=== PATIENT | male | born 1995 | race Two or more races ===

== ENCOUNTER 2024-12-27 15:52 | Emergency (ER) | payer MEDICAID, SELFPAY ==
[2024-12-27 16:21] VITALS: BP 116/79; PULSE 67; RESP 18; TEMP 36.8; O2SAT 100
[2024-12-27 16:23] VITALS: BMI 34.4
--- NOTE | 2024-12-27 16:34 | PD.EDANX ---
ED Anxiety RME/HPI General Stated Complaint: anxiety, feels dehydrated Time Seen by Provider: 12/27/24 16:31 Arrival date/time: 12/27/24 15:52 29-year-old male with history of anxiety presents emergency department today with complaints of anxiety patient reports that he is going through a break-up and he drank heavily last night patient reports nausea and vomiting and anxiety. Patient ports no chest pain or shortness of breath Limitations: no limitations Related Data Previous Rx's ?Medication ?Instructions ?Recorded acetaminophen 500 mg capsule 1,000 mg (2 x 500 mg) PO Q8HR PRN 12/27/24 pain #30 caps hydroxyzine HCl 50 mg tablet 50 mg PO TID PRN anxiety #30 tabs 12/27/24 ondansetron 4 mg disintegrating 4 mg PO Q8H PRN nausea and 12/27/24 tablet vomiting #10 tabs Allergies Allergy/AdvReac Type Severity Reaction Status Date / Time No Known Allergies Allergy Verified 12/27/24 15:55 Review of Systems Review of Systems Systems Reviewed: All systems reviewed, normal except as documented Constitutional Constitutional: Reports system reviewed and no additional complaints, except as documented, Denies fever(s) and Denies headache(s) Eyes Eyes: Reports system reviewed and no additional complaints, except as documented and Denies blurry vision ENT Ears, Nose, Mouth, and Throat: Reports system reviewed and no additional complaints, except as documented, Denies headache(s), Denies nasal congestion and Denies nasal discharge Cardiovascular Cardiovascular: Reports system reviewed and no additional complaints, except as documented, Denies chest pain and Denies dyspnea Respiratory Respiratory: Reports system reviewed and no additional complaints, except as documented, Denies chest congestion, Denies cough and Denies dyspnea Gastrointestinal Gastrointestinal: Reports system reviewed and no additional complaints, except as documented and Denies abdominal pain Integumentary/Breasts Skin/Breast: Reports system reviewed and no additional complaints, except as documented and Denies rash Neurologic Neurologic: Reports system reviewed and no additional complaints, except as documented, Reports as per HPI and Denies headache(s) Psychiatric Psychiatric: Reports system reviewed and no additional complaints, except as documented, Reports anxiety, Reports homicidal ideation and Reports suicidal ideation Past Medical History Past Medical History CARDIAC: Negative Congestive Heart Failure RESPIRATORY: Negative Chronic Obstructive Pulmonary Disease (COPD) GENITOURINARY: Negative Renal Disease ENDOCRINE: Negative Diabetes Mellitus Type 1 or Diabetes Mellitus Type 2 Family History FAMILY HISTORY: Negative Family Cardiac Disorders Social History SMOKING STATUS: Current every day smoker SUBSTANCE USE: crack/cocaine ED Exam General Limitations: Present no limitations General appearance: Present alert and in no apparent distress Head Head exam: Present atraumatic Eye Eye exam: Present normal appearance, PERRL and EOMI ENT ENT exam: Present normal exam, normal oropharynx and mucous membranes moist Neck Neck exam: Present normal inspection, full ROM and trachea midline Chest Chest inspection: Present normal inspection and symmetric chest wall rise Respiratory Respiratory exam: Present normal lung sounds bilaterally Cardiovascular Cardiovascular exam: Present regular rate, normal rhythm and normal heart sounds Abdominal Exam Abdominal exam: Present soft and normal bowel sounds Extremities Exam Extremities exam: Present normal inspection and full ROM Back Exam Back exam: Present normal inspection and full ROM Neurological Exam Neurological exam: Present alert, oriented X3 and CN II-XII intact Psychiatric Psychiatric exam: Present normal affect and normal mood Skin Skin exam: Present warm, dry, intact and normal color Course Quality Measures none Orders Category Date Time Status Acetaminophen Tab [Tylenol ES Tab] Med 12/27/24 16:31 Discontinued 1,000 mg PO X1 ONE LORazepam [Ativan] Med 12/27/24 16:31 Discontinued 0.5 mg PO X1 ONE Ondansetron Odt [Zofran Odt] Med 12/27/24 16:31 Discontinued 4 mg PO X1 ONE Vital Signs Vital signs: Vital Signs Temperature 98.3 F 12/27/24 16:21 Pulse Rate 67 12/27/24 16:21 Respiratory Rate 18 12/27/24 16:21 Blood Pressure 116/79 12/27/24 16:21 Pulse Oximetry (%) 100 12/27/24 16:21 Oxygen Delivery Method Room Air 12/27/24 16:21 O2 saturation 100% room air wnl Anxiety MDM Narrative MDM Narrative: 29-year-old male with history of anxiety presents emergency department today with complaints of anxiety patient reports that he is going through a break-up and he drank heavily last night patient reports nausea and vomiting and anxiety. Patient reports no chest pain or shortness of breath Patient reports no suicidal or homicidal ideation Patient treated here symptomatically and discharged with medication Patient discharged home in no distress to follow-up with primary care doctor in the next 24 to 48 hours and for any worsening symptoms to return to the ER immediately Patient data External records reviewed:: [facility] previous records Clinical information provided by:: patient Social determinants that could affect healthcare access:: mental health Patient has the following chronic illnesses:: Anxiety How is presenting disease/condition affected by chronic disease/condition?: caused by Evaluation data The following diagnostics were reviewed and interpreted by me:: other (specify) (N/A) Lab and/or radiology exams considered but not ordered:: Consider not ordered Interpretation Summary: N/A Medications / Prescriptions Medications or Prescriptions considered but not ordered:: Given Medication administrations:: Medication Administration History Discontinued Medications Acetaminophen (Acetaminophen 500 Mg Tablet) 1,000 mg PO X1 ONE Stop: 12/27/24 16:32 Lorazepam (Lorazepam 0.5 Mg Tablet) 0.5 mg PO X1 ONE Stop: 12/27/24 16:32 Ondansetron HCl (Ondansetron Odt 4 Mg Tabrap) 4 mg PO X1 ONE; Protocol Stop: 12/27/24 16:32 Consultations Consultation(s) initiated? (list below): No Diagnosis Differential diagnosis anxiety: hyperventilation, panic disorder and acute anxiety Most likely diagnosis given after review of the tests above:: Anxiety Admission Indicated Admission indicated?: not indicated Admission Request Was there a request for admission?: No Disposition Plan Disposition Plan: Discharge Discharge Attestation Discharge Attestation: The patient and all family members were given an opportunity to ask questions and understood the discharge instructions. Discharge instructions specifically effects, indications for sooner follow up or return to the emergency department, and the expected course of current diagnosis. Patient condition: Stable Discharge Plan Plan Patient Disposition: HOME (Self Care) Disposition Comment: Stable Prescriptions/Referrals Prescriptions/Med Rec: New hydroxyzine HCl 50 mg tablet 50 mg PO TID PRN (Reason: anxiety) Qty: 30 0RF acetaminophen 500 mg capsule 1,000 mg PO Q8HR PRN (Reason: pain) Qty: 30 0RF ondansetron 4 mg tablet,disintegrating 4 mg PO Q8H PRN (Reason: nausea and vomiting) Qty: 10 0RF Problem List Clinical Impression: Anxiety Patient/Caregiver Discharge Instructions Additional Instructions: Please follow up with your primary care doctor in the next 24-48hrs for any worsening symptoms return here immediately Print Language: Liberian Stand Alone Forms: [employer]son Award Info., Patient Portal Info Letter PA/CASINO INVESTIGATOR Supervising Physician PA/CASINO INVESTIGATOR Supervising Physician: Dr Phan
[2024-12-27] MEDS: ONDANSETRON ODT 4 MG TABRAP PO (16:37)
[2024-12-27] MEDS: ACETAMINOPHEN 500 MG TABLET 1000 MG PO (16:37)
[2024-12-27] MEDS: LORazepam 0.5 MG TABLET PO (16:37)
== END 2024-12-27 16:44 | disposition home or self-care (01) ==
LOC: SERX 17:02
PROVIDERS: Emergency Provider Emergency Medicine
DX: F41.9 Anxiety disorder, unspecified (principal)
CPT/HCPCS: 99282; Q0162; A9270